=== PATIENT | female | born 1970 | race Caucasian/White ===

== ENCOUNTER 2020-05-29 23:44 | Emergency (ER) | payer BC ==
--- NOTE | 2020-05-30 00:26 | ER Document Report ---
ED Medical Screen (RME) - General Chief Complaint: Abdominal Pain Stated Complaint: ABDOMINAL PAIN Mode of Arrival: Wheelchair Information source: Patient Notes: 49-year-old female presents to ED for complaint of upper abdominal pain. She does have a history of high blood pressure and is on amlodipine. She does have a blood pressure of 101/56 with a pulse of 61 respirations of 18 and a temp of 98.7. She states she has had 4 glasses of wine today. She states she does drink once or twice a week. She does not smoke or do any drugs. She has not been to this hospital before. The only medical history she gave me was the high blood pressure. She did tell the check in the front that she was having numbness down 1 of her arms and then she pushed herself up from that arm. She was laying on the floor but she is now sitting in a chair. I will order blood work and upper abdominal ultrasound. I have greeted and performed a rapid initial assessment of this patient. A comprehensive ED assessment and evaluation of the patient, analysis of test results and completion of medical decision making process will be conducted by an additional ED providers. Physical Exam - Vital signs Vitals: Pulse Resp BP Pulse Ox 61 18 101/56 L 100 05/29/20 23:51 05/29/20 23:51 05/29/20 23:51 05/29/20 23:51 Course - Vital Signs Vital signs: Temp Pulse Resp BP Pulse Ox 61 18 101/56 L 100 05/29/20 23:51 05/29/20 23:51 05/29/20 23:51 05/29/20 23:51
[2020-05-30 02:18] LABS: ABSOLUTE LYMPHOCYTES (AUTO) 1.7 10^3/uL (0.5-4.7); ABSOLUTE MONOCYTES (AUTO) 0.6 10^3/uL (0.1-1.4); ABSOLUTE NEUT (AUTO) 10.1 10^3/uL (1.7-8.2); BASOPHILS % (AUTO) 0.3 % (0-2); EOSINOPHILS % (AUTO) 0.2 % (0-6); HEMATOCRIT 37.2 % (36.0-47.0); HEMOGLOBIN 12.5 g/dL (12.0-15.5); LYMPHOCYTES % (AUTO) 13.4 % (13-45); MEAN CORPUSCULAR HEMOGLOBIN 31.6 pg (27.0-33.4); MEAN CORPUSCULAR HGB CONC 33.7 g/dL (32.0-36.0); MEAN CORPUSCULAR VOLUME 94 fl (80-97); PLATELET COUNT 199 10^3/uL (150-450); RED BLOOD COUNT 3.97 10^6/uL (3.72-5.28); RED CELL DISTRIBUTION WIDTH 13.3 % (11.5-14.0); SEGMENTED NEUTROPHILS % (AUTO) 81.1 % (42-78); TOTAL CELLS COUNTED % (AUTO) 100 %; WHITE BLOOD COUNT 12.4 10^3/uL (4.0-10.5)
--- NOTE | 2020-05-30 02:21 | RADIOLOGY REPORT (SQ) ---
EXAM DESCRIPTION: U/S ABDOMEN COMPLETE W/DOPPLER RadLex: US ABDOMEN DOPPLER CLINICAL HISTORY: 49 years Female; Upper abdominal pain TECHNIQUE: Abdominal ultrasound was performed. COMPARISON: None. FINDINGS: Liver: 15.8 cm long. Parenchyma is somewhat heterogeneous. No focal lesion. No ductal distention. Small amount of overlying free fluid. . No intrahepatic ductal distention. No focal lesions. Gallbladder: normal with no gallstones or sonographic evidence for acute cholecystitis. Common bile duct: 2 mm. Pancreas: visualized portions are unremarkable. Spleen: 8.2 cm long. Portal venous flow is hepatopedal, normal. No free fluid. Right kidney: 10.6 cm long. No hydronephrosis. Left kidney: 11.1 cm long. No hydronephrosis. Aorta:Visualized portions are within normal limits. IVC: Visualized portions are within normal limits. IMPRESSION: 1. Heterogeneous liver parenchyma, suspicious for diffuse hepatocellular disease. Small amount of perihepatic fluid, but no significant ascites. 2. Normal hepatopedal portal venous flow 3. Otherwise unremarkable exam.
[2020-05-30 02:32] LABS: ALBUMIN 4.1 g/dL (3.5-5.0); ALKALINE PHOSPHATASE 62 U/L (38-126); ANION GAP 6 (5-19); ASPARTATE AMINO TRANSFERASE 71 U/L (14-36); BILIRUBIN,TOTAL 0.3 mg/dL (0.2-1.3); BLOOD UREA NITROGEN 17 mg/dL (7-20); CARBON DIOXIDE 21 mmol/L (22-30); CHLORIDE 109 mmol/L (98-107); GLUCOSE 161 mg/dL (75-110); POTASSIUM 3.8 mmol/L (3.6-5.0)
[2020-05-30 02:49] LABS: APPEARANCE,URINE CLEAR; BILIRUBIN,URINE NEGATIVE (NEGATIVE); COLOR,URINE STRAW; GLUCOSE, URINE 150 mg/dL (NEGATIVE); KETONES,URINE 20 mg/dL (NEGATIVE); LEUKOCYTE ESTERASE,URINE NEGATIVE (NEGATIVE); NITRITE,URINE NEGATIVE (NEGATIVE); PROTEIN,URINE NEGATIVE (NEGATIVE); URINE SPECIFIC GRAVITY 1.019; UROBILINOGEN,URINE NEGATIVE mg/dL (<2.0)
[2020-05-30] MEDS ORDERED: PANTOPRAZOLE SODIUM 40 MG VIAL IV ONE (04:54)
[2020-05-30] MEDS ORDERED: MORPHINE SULFATE 10 MG/ML INJ IV ONE (04:54)
[2020-05-30] MEDS ORDERED: ONDANSETRON HCL INJ/PF 4 MG/2 ML SDV IV ONE ×2 (04:54→12:07)
[2020-05-30] MEDS ORDERED: FAMOTIDINE INJ/PF 20 MG/2 ML SDV IV ONE (04:54)
[2020-05-30] MEDS ORDERED: HYDROMORPHONE HCL INJ/PF 2 MG/ML AMPULE IV ONE ×4 (05:17→16:49)
--- NOTE | 2020-05-30 07:21 | ER Document Report ---
ED General - General Chief Complaint: Abdominal Pain Stated Complaint: ABDOMINAL PAIN Time Seen by Provider: 05/30/20 00:27 Primary Care Provider: [facility] [Provider Group] - Follow up as needed CORTEZ HUBBARD MD [Primary Care Provider] - Follow up as needed RASHAUN NUNO MD [ACTIVE STAFF] - Follow up as needed Mode of Arrival: Wheelchair - HPI Notes: 49-year-old female history of hypertension presents with sudden onset severe epigastric abdominal pain without radiation associated with nausea that began 10 PM prior to arrival. Patient endorses drinking 4 glasses of wine beforehand. Patient denies any trauma, chest pain, shortness of breath, dizziness, syncope, vomiting, bright red blood per rectum, melena, diarrhea, constipation, lower abdominal symptoms, urinary or vaginal symptoms, cardiac history, prior episodes - Related Data Allergies/Adverse Reactions: Sulfa (Sulfonamide Antibiotics) Allergy (Verified 05/30/20 00:35) Home Medications: Amlodipine 5mg PO Daily Past Medical History - General Information source: Patient - Social History Smoking Status: Current Every Day Smoker Chew tobacco use (# tins/day): No Frequency of alcohol use: Occasional Drug Abuse: None Family History: Reviewed & Not Pertinent Patient has homicidal ideation: Yes - Past Medical History Cardiac Medical History: Reports: Hx Hypertension Review of Systems - Review of Systems Notes: REVIEW OF SYSTEMS: CONSTITUTIONAL : Denies fever, chills, or sweats. EENT: Denies recent cold/sinus symptoms, denies throat pain CARDIOVASCULAR: Denies chest pain, MANOLO RESPIRATORY: Denies cough, denies shortness of breath. GASTROINTESTINAL: + abdominal pain, +nausea GENITOURINARY: Denies difficulty urinating, painful urination. FEMALE GENITOURINARY: Denies abnormal vaginal bleeding, vaginal discharge. MUSCULOSKELETAL: Denies neck pain, back pain. SKIN: Denies rash or skin lesions. HEMATOLOGIC : Denies easy bruising or bleeding. LYMPHATIC: Denies swollen, enlarged glands. NEUROLOGICAL: Denies headache, denies change in gait. PSYCHIATRIC: Denies anxiety or stress or depression. Physical Exam - Vital signs Vitals: Pulse Resp BP Pulse Ox 61 18 101/56 L 100 05/29/20 23:51 05/29/20 23:51 05/29/20 23:51 05/29/20 23:51 - Notes Notes: PHYSICAL EXAMINATION: GENERAL: Well-nourished, uncomfortable secondary to abdominal pain HEAD: Atraumatic, normocephalic. EYES: Pupils equal round and appropriate constriction, sclera anicteric, conjunctiva are normal. ENT: nares patent, moist mucous membranes. NECK: Normal range of motion, supple without lymphadenopathy LUNGS: Breath sounds clear to auscultation bilaterally and equal. No wheezes rales or rhonchi. HEART: Regular rate and rhythm without murmurs ABDOMEN: Soft, nontender, no guarding, no masses, no CVAT, pain is over epigastrium but nontender EXTREMITIES: Normal range of motion, no pitting or edema. No cyanosis. NEUROLOGICAL: Awake, alert, conversing appropriately, moves all extremities spontaneously. PSYCH: Normal mood, normal affect. SKIN: Warm, Dry, normal turgor, no rashes or lesions noted. Course - Re-evaluation Re-evalutation: 05/30/20 05:18 Obtain CTA of abdomen and pelvis because of pain out of proportion to examination. Presentation suspicious for possible PUD, but no signs of perforation, no spreading pain, no referred pain, normal vitals, benign abdominal exam. No signs of bleeding. Pain in distribution of pancreas but lipase normal Sufficient to rule out pancreatitis. Rule out SMA thrombus or stenosis/mesenteric ischemia, atypical ACS. Given that pain started at 10 PM, 1 troponin sufficient to rule out. 05/30/20 07:20 Patient feels significantly improved, abdominal examination remains completely nontender, patient feels relieved that symptoms have abated and is in agreement with discharge with gastroenterology follow-up. No other emergent findings on labs. Dispo pending CTA read. 05/30/20 07:30 CTA showed liver lac with subcapsular hematoma, unknown etiology as pt denies trauma not on anticoagulation and no known history of coagulopathy, h/o heavy drinking but not daily drinker and no history of withdrawal symptoms and no evidence of cirrhosis. Coags and type and screen ordered and care turned over to Dr. Bustamante pending likely transfer. - Vital Signs Vital signs: Temp Pulse Resp BP Pulse Ox 98.4 F 62 19 161/100 H 99 05/30/20 16:48 05/30/20 07:18 05/30/20 16:48 05/30/20 16:48 05/30/20 16:48 - Laboratory Result Diagrams: 05/30/20 13:50 05/30/20 01:30 Laboratory results interpreted by me: 05/30/20 05/30/20 05/30/20 01:30 01:30 01:30 WBC 12.4 H Hgb Hct Lymph % (Auto) Absolute Neuts (auto) 10.1 H Seg Neutrophils % 81.1 H APTT Sodium 135.9 L Chloride 109 H Carbon Dioxide 21 L Glucose 161 H AST 71 H ALT 56 H Ammonia Urine Glucose (UA) 150 H Urine Ketones 20 H Urine Blood SMALL H 05/30/20 05/30/20 05/30/20 08:00 13:50 13:50 WBC 11.9 H Hgb 11.9 L Hct 35.3 L Lymph % (Auto) 6.9 L Absolute Neuts (auto) 10.4 H Seg Neutrophils % 87.6 H APTT 20.9 L 21.7 L Sodium Chloride Carbon Dioxide Glucose AST ALT Ammonia Urine Glucose (UA) Urine Ketones Urine Blood 05/30/20 05/30/20 13:50 13:50 WBC Hgb Hct Lymph % (Auto) Absolute Neuts (auto) Seg Neutrophils % APTT Sodium Chloride Carbon Dioxide Glucose AST 261 H ALT 275 H Ammonia < 8.7 L Urine Glucose (UA) Urine Ketones Urine Blood - EKG Interpretation by Me Additional EKG results interpreted by me: 05/30/20 06:00 Heart rate 65, normal sinus rhythm, no significant ST elevations or depressions, T wave inversion in 3 and aVF, QTC 441 Discharge - Discharge Clinical Impression: Subcapsular hematoma of liver, Alcohol use Abdominal pain Qualifiers: Abdominal location: right upper quadrant Qualified Code(s): R10.11 - Right upper quadrant pain Condition: Stable Disposition: [facility] Additional Instructions: Abdominal Pain There are many causes of abdominal pain. Pain can mean a serious problem requiring surgery (such as appendicitis). It can also be an innocent problem that goes away on its own (such as a viral infection). Often, time must pass to determine the cause of pain. The physician does not feel that hospitalization is necessary, at present. Things may change within the next 24 hours. Call the doctor or come back for re- examination if any problems occur, such as: (1) Pain that becomes more severe, steady, or becomes concentrated in one specific area. Also, pain that is more severe with movement or coughing. (2) Vomiting that persists or becomes more frequent. (3) Blood in the vomitus, urine, or bowel movements. Blood in the stool may have a tarry or black appearance. (4) Shaking chills or fever greater than 100 degrees F. (5) The abdomen becomes more distended or swollen. (6) Bowel movements cease. (7) Failure to improve as expected. 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 Inform them that you were evaluated in the ED. Return to ED immediately if pain should worsen, black or bloody stool, vomiting and unable to keep down liquids by mouth, bloody vomit, dizziness, fainting, chest pain, trouble breathing, fever, or any other worsening or alarming symptoms. Your evaluation in the ED showed abnormal liver texture possibly suggesting liver disease and several mildly abnormal labs including AST, ALT, glucose, which should be reevaluated by [facility] and your primary doctor within 1 week. Prescriptions: Omeprazole 40 mg PO DAILY #7 capsule. Famotidine [Pepcid 20 mg Tablet] 20 mg PO BID #14 tablet Referrals: CORTEZ HUBBARD MD [Primary Care Provider] - Follow up as needed RASHAUN NUNO MD [ACTIVE STAFF] - Follow up as needed [facility] [Provider Group] - Follow up as needed
--- NOTE | 2020-05-30 07:43 | RADIOLOGY REPORT (SQ) ---
EXAM: CT Angiography Abdomen and Pelvis Without and With Intravenous Contrast EXAM DATE/TIME: 05/30/2020 6:06 AM CLINICAL HISTORY: The patient is 49 years old and is Female; mid upper abd pain out of proportion. HCG NEG CREAT 0.88 TECHNIQUE: Axial computed tomographic angiography images of the abdomen and pelvis without and with intravenous contrast. Sagittal and coronal reformatted images were created and reviewed. This CT exam was performed using one or more of the following dose reduction techniques: automated exposure control, adjustment of the mA and/or kV according to patient size, and/or use of iterative reconstruction technique. MIP reconstructed images were created and reviewed. COMPARISON: Abdominal ultrasound from 05/30/2020 FINDINGS: VASCULATURE: AORTA: No acute findings. No abdominal aortic aneurysm. No dissection. CELIAC TRUNK AND MESENTERIC ARTERIES: No acute findings. No occlusion or significant stenosis. RENAL ARTERIES: No acute findings. No occlusion or significant stenosis. ILIAC ARTERIES: No acute findings. No occlusion or significant stenosis. LUNG BASES: Unremarkable. No mass. No consolidation. ABDOMEN: LIVER: There is a large heterogeneous collection extending along the lateral right lobe of the liver. This has the appearance of a large subcapsular fluid collection and is favored to represent subacute acute hematoma. This measures approximately 13.5 x 6.0 cm. There is also a small, somewhat irregular area of decreased density visualized in the lateral segment of the left lobe of the liver (series 3, image 31). This measures approximately 2.2 cm. GALLBLADDER AND BILE DUCTS: Unremarkable. No calcified stones. No significant biliary ductal dilation. PANCREAS: Unremarkable. No ductal dilation. No mass. SPLEEN: Unremarkable. No splenomegaly. ADRENALS: Unremarkable. No obvious adrenal mass or nodule. KIDNEYS AND URETERS: Unremarkable. No obstructing stones. No hydronephrosis. No obvious solid mass. STOMACH AND BOWEL: No evidence of bowel obstruction. No significant bowel wall thickening. PELVIS: APPENDIX: The appendix is unremarkable. BLADDER: Unremarkable. No stones. No mass. REPRODUCTIVE: Unremarkable as visualized. ABDOMEN and PELVIS: INTRAPERITONEAL SPACE: Trace perihepatic free fluid. No free air. BONES/JOINTS: No acute fracture. No dislocation. SOFT TISSUES: Small fat-containing umbilical hernia. LYMPH NODES: No significant lymph node enlargement. IMPRESSION: 1. Large heterogeneous collection along the right lobe of the liver. This has the appearance of a large subcapsular fluid collection and is favored to represent subacute acute hematoma. There is also a small, somewhat irregular area of decreased density visualized in the left lobe of the liver, which could represent a small liver lesion or small liver laceration. There is no contrast extravasation visualized to suggest active hemorrhage. Recommend correlation with clinical history. 2. Trace perihepatic free fluid.
--- NOTE | 2020-05-30 08:14 | ER Document Report ---
ED General - General Chief Complaint: Abdominal Pain Stated Complaint: ABDOMINAL PAIN Time Seen by Provider: 05/30/20 00:27 Primary Care Provider: [facility] [Provider Group] - Follow up as needed CORTEZ HUBBARD MD [Primary Care Provider] - Follow up as needed RASHAUN NUNO MD [ACTIVE STAFF] - Follow up as needed Mode of Arrival: Wheelchair - HPI Notes: Patient is a 49-year-old female who presents to the emergency department for evaluation. She states that she had fallen asleep on her couch at about 8 PM. She states she woke up at 10 PM with sudden onset epigastric pain. She described as a pressure and a tightness. It progressed over the next several hours. She states her pain was worsened by lying in a supine position. It was improved when she was sitting on all fours and what she called a "turtle position." She has had no fevers or chills. She had nausea with one episode of emesis here, reports that was likely secondary to IV placement. Normal bowel movements. No fevers or chills. She had been eating and drinking normally. She denies any recent trauma to the area. 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 She denies any falls. - Related Data Allergies/Adverse Reactions: Sulfa (Sulfonamide Antibiotics) Allergy (Verified 05/30/20 00:35) Home Medications: Amlodipine 5mg PO Daily Past Medical History - General Information source: Patient - Social History Smoking Status: Current Every Day Smoker Chew tobacco use (# tins/day): No Frequency of alcohol use: Heavy - Drinks 4 to 6 glasses of wine, 4 times a week Drug Abuse: None Family History: Other - Cirrhosis Patient has homicidal ideation: Yes - Past Medical History Cardiac Medical History: Reports: Hx Hypertension Review of Systems - Review of Systems Gastrointestinal: See HPI -: Yes All other systems reviewed and negative Physical Exam - Vital signs Vitals: Pulse Resp BP Pulse Ox 61 18 101/56 L 100 05/29/20 23:51 05/29/20 23:51 05/29/20 23:51 05/29/20 23:51 - Notes Notes: Vital signs reviewed, please refer to chart. Head is normocephalic, atraumatic. Pupils equal round, reactive to light. Neck is supple without meningismus. Heart is regular rate and rhythm. Lungs are clear to auscultation bilaterally. Abdomen is soft, mild epigastric pain without rebound or guarding, normoactive bowel sounds throughout. She has a 2 x 4 cm area of ecchymosis inferior to the liver margin on the right, with no significant tenderness noted there. Extremities without cyanosis, clubbing. Posterior calves are nontender. Peripheral pulses are equal. Skin is warm and dry. Patient is awake, alert, neurological exam is nonfocal. Course - Re-evaluation Re-evalutation: 05/30/20 08:13 Patient presents to the emergency department for evaluation. She was initially seen by Dr. Tracey. She had laboratory investigations and work-up as ordered. Her pain was improved by the medication, but began to return at the time of my evaluation. Care of this patient was turned over to me when the CT scan report came back. Patient denies any trauma, but I do not believe her to be a reliable historian. She admits to heavy drinking, I am concerned she drinks even more heavily than she reports. She certainly could have had a trauma that she does not recall. It is rare, but can also possibly be a spontaneous subcapsular hematoma. I discussed this patient with Dr. Richards. He is concerned about the possibility of rupture, concerned that this should be taken care of in a tertiary care center. I discussed this with the patient. She is kept n.p.o. Type and screen, coags are pending at this time. Patient is currently stable, we will continue to monitor. 05/30/20 08:27 I spoke to the trauma service, Dr. Cedeno, at [facility]. He agrees that transfer is appropriate, but asks that the images be pushed to his facility, so he can review them to determine the most appropriate service, given specifically that this patient is denying any known trauma. Images pushed, awaiting callback. 05/30/20 08:57 Dr. Cedeno called me back. He reports that there is some findings of old blood, and believes this may be best handled by the emergency general surgery service. Transfer gunnison has a page out to [facility]. 05/30/20 10:03 I was updated by the transfer center at [facility]. The general surgeon has been in surgery, will call when she is free. The patient remained stable. I went back in and examined her again. She states her pain was helped by the fentanyl. 05/30/20 11:[address] Rolle, on-call surgeon, when she called me back approximately 20 minutes ago. She states she reviewed the films. She states the only reason for transfer at this time would be active bleeding, and there is no evidence of that. She states that she believed an observation will be reasonable, but she believed it could be done at my facility. She states of course if she were to bleed the patient would be accepted. I spoke to Dr. Richards, our on-call surgeon. He states he believes that if the patient were to rebleed here she would definitely succumb to this bleeding, and has grave concerns about her staying in our facility. I then called [facility] back, spoke to GIORGIO Venegas on the medicine service. He reports that he now has a surgeon who states this patient does not require transfer, and it would have a difficult time accepting this patient in transfer based on this information. I then spoke with Dr. Marilyn lozano regarding this patient. He is still concerned that the patient will potentially need emergent IR, which is not available here, and again agrees that this patient's most appropriate disposition is to a tertiary care center. He will attempted to speak to the physicians at [facility] regarding this patient's disposition. Patient's pain has returned, I did order a small dose of Dilaudid. She remains n.p.o. 05/30/20 14:46 We did have significant difficulty transferring this patient. I did get help from Dr. Buckley who made multiple attempts. Upon further questioning with the patient, she does state that she was wrestling with an animal of several days ago, believes this may have been the etiology of a traumatic blow to her abdomen. I truly believe this to be atraumatic subcapsular hematoma. Eventually, I was able to make this a trauma transfer to [facility]. Dr. Cintron in the emergency department accepted the patient. 05/30/20 16:50 Patient remained stable. She states her pain was starting to worsen slightly, but her heart rate remained 70, she is actually mildly hypertensive. 0.5 mg of Dilaudid ordered, as that it helped her pain significantly. Helicopter transport is arriving now for transfer to [facility]. - Vital Signs Vital signs: Temp Pulse Resp BP Pulse Ox 98.0 F 62 16 166/100 H 99 05/30/20 07:18 05/30/20 07:18 05/30/20 15:01 05/30/20 15:01 05/30/20 15:01 - Laboratory Result Diagrams: 05/30/20 13:50 05/30/20 01:30 Laboratory results interpreted by me: 05/30/20 05/30/20 05/30/20 01:30 01:30 01:30 WBC 12.4 H Hgb Hct Lymph % (Auto) Absolute Neuts (auto) 10.1 H Seg Neutrophils % 81.1 H APTT Sodium 135.9 L Chloride 109 H Carbon Dioxide 21 L Glucose 161 H AST 71 H ALT 56 H Ammonia Urine Glucose (UA) 150 H Urine Ketones 20 H Urine Blood SMALL H 05/30/20 05/30/20 05/30/20 08:00 13:50 13:50 WBC 11.9 H Hgb 11.9 L Hct 35.3 L Lymph % (Auto) 6.9 L Absolute Neuts (auto) 10.4 H Seg Neutrophils % 87.6 H APTT 20.9 L 21.7 L Sodium Chloride Carbon Dioxide Glucose AST ALT Ammonia Urine Glucose (UA) Urine Ketones Urine Blood 05/30/20 05/30/20 13:50 13:50 WBC Hgb Hct Lymph % (Auto) Absolute Neuts (auto) Seg Neutrophils % APTT Sodium Chloride Carbon Dioxide Glucose AST 261 H ALT 275 H Ammonia < 8.7 L Urine Glucose (UA) Urine Ketones Urine Blood - Diagnostic Test Radiology reviewed: Reports reviewed Radiology results interpreted by me: 05/30/20 08:22 Abdomen Ultrasound 05/30/20 00:26 IMPRESSION: 1. Heterogeneous liver parenchyma, suspicious for diffuse hepatocellular disease. Small amount of perihepatic fluid, but no significant ascites. 2. Normal hepatopedal portal venous flow 3. Otherwise unremarkable exam. Abdomen/Pelvis CTA 05/30/20 04:55 IMPRESSION: 1. Large heterogeneous collection along the right lobe of the liver. This has the appearance of a large subcapsular fluid collection and is favored to represent subacute acute hematoma. There is also a small, somewhat irregular area of decreased density visualized in the left lobe of the liver, which could represent a small liver lesion or small liver laceration. There is no contrast extravasation visualized to suggest active hemorrhage. Recommend correlation with clinical history. 2. Trace perihepatic free fluid. Critical Care Note - Critical Care Note Total time excluding time spent on procedures (mins): 80 Discharge - Discharge Clinical Impression: Subcapsular hematoma of liver, Alcohol use Abdominal pain Qualifiers: Abdominal location: right upper quadrant Qualified Code(s): R10.11 - Right upper quadrant pain Condition: Stable Disposition: [facility] Admitting Provider: Abdulaziz accepting to ED Additional Instructions: Abdominal Pain There are many causes of abdominal pain. Pain can mean a serious problem requiring surgery (such as appendicitis). It can also be an innocent problem that goes away on its own (such as a viral infection). Often, time must pass to determine the cause of pain. The physician does not feel that hospitalization is necessary, at present. Things may change within the next 24 hours. Call the doctor or come back for re- examination if any problems occur, such as: (1) Pain that becomes more severe, steady, or becomes concentrated in one specific area. Also, pain that is more severe with movement or coughing. (2) Vomiting that persists or becomes more frequent. (3) Blood in the vomitus, urine, or bowel movements. Blood in the stool may have a tarry or black appearance. (4) Shaking chills or fever greater than 100 degrees F. (5) The abdomen becomes more distended or swollen. (6) Bowel movements cease. (7) Failure to improve as expected. Follow-up with the scowman within 1 week. Inform them that you were evaluated in the ED. Return to ED immediately if pain should worsen, black or bloody stool, vomiting and unable to keep down liquids by mouth, bloody vomit, dizziness, fainting, chest pain, trouble breathing, fever, or any other worsening or alarming symptoms. Your evaluation in the ED showed abnormal liver texture possibly suggesting liver disease and several mildly abnormal labs including AST, ALT, glucose, which should be reevaluated by scowman and your primary doctor within 1 week. Prescriptions: Omeprazole 40 mg PO DAILY #7 capsule. Famotidine [Pepcid 20 mg Tablet] 20 mg PO BID #14 tablet Referrals: [facility] [Provider Group] - Follow up as needed CORTEZ HUBBARD MD [Primary Care Provider] - Follow up as needed RASHAUN NUNO MD [ACTIVE STAFF] - Follow up as needed
[2020-05-30 08:27] LABS: INTERNATIONAL RATION (INR) 1.01; PARTIAL THROMBOPLASTIN TIME 20.9 SEC (23.5-35.8); PROTHROMBIN TIME 13.5 SEC (11.4-15.4)
[2020-05-30] MEDS ORDERED: FENTANYL CITRATE INJ/PF 100 MCG/2 ML AMPUL IV ONE (09:02)
[2020-05-30] MEDS ORDERED: THIAMINE HCL INJ 200 MG/2 ML VIAL IV ONE (14:00)
[2020-05-30 14:07] LABS: ABSOLUTE LYMPHOCYTES (AUTO) 0.8 10^3/uL (0.5-4.7); ABSOLUTE MONOCYTES (AUTO) 0.6 10^3/uL (0.1-1.4); ABSOLUTE NEUT (AUTO) 10.4 10^3/uL (1.7-8.2); BASOPHILS % (AUTO) 0.1 % (0-2); HEMATOCRIT 35.3 % (36.0-47.0); HEMOGLOBIN 11.9 g/dL (12.0-15.5); LYMPHOCYTES % (AUTO) 6.9 % (13-45); MEAN CORPUSCULAR HEMOGLOBIN 31.6 pg (27.0-33.4); MEAN CORPUSCULAR HGB CONC 33.8 g/dL (32.0-36.0); MEAN CORPUSCULAR VOLUME 93 fl (80-97); MONOCYTES % (AUTO) 5.4 % (3-13); PLATELET COUNT 180 10^3/uL (150-450); RED BLOOD COUNT 3.78 10^6/uL (3.72-5.28); RED CELL DISTRIBUTION WIDTH 13.3 % (11.5-14.0); SEGMENTED NEUTROPHILS % (AUTO) 87.6 % (42-78); TOTAL CELLS COUNTED % (AUTO) 100 %; WHITE BLOOD COUNT 11.9 10^3/uL (4.0-10.5)
[2020-05-30 14:20] LABS: FIBRINOGEN 253 mg/dL (209-497); INTERNATIONAL RATION (INR) 1.01; PARTIAL THROMBOPLASTIN TIME 21.7 SEC (23.5-35.8); PROTHROMBIN TIME 13.5 SEC (11.4-15.4)
[2020-05-30 14:28] LABS: ALBUMIN 4.3 g/dL (3.5-5.0); ALKALINE PHOSPHATASE 51 U/L (38-126); ASPARTATE AMINO TRANSFERASE 261 U/L (14-36); BILIRUBIN,TOTAL 0.6 mg/dL (0.2-1.3)
--- NOTE | 2020-05-30 14:45 | PDOC CONSULTATION ---
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 She was hemodynamically stable and in the ensuing work-up received a CT scan and ultrasound which showed a subcapsular hematoma of the l iver which was quite large (13.5 X 6). The pain has been quite strong and she has required fentanyl and Dilaudid. The emergency room consulted intensive care because there was an inability for the patient to be accepted at [facility] and [facility]. The ED was concerned about this patient's welfare and asked if we could intervene and assist in her care. The patient states that she does not work with large animals and denies being kicked or injured. She does state that she often has to wrestle and control animals but does not recall any blunt abdominal trauma. She has not had any weight loss fevers or chills. There is no history of liver cancer and there is only a family history of cirrhosis. Her mother from complications of cirrhosis related to alcohol use. She does disclose that she occasionally sleep walks while under stress and she has felt significant stress at work. She also discloses that she drinks a significant amount of alcohol and did so last night. She denies any falls or traumas. Currently patient has a 20 guage IV catheter in left arm. She does have pain but is controlled with Dilaudid that she received. Past Medical History Cardiac Medical History: Reports: Hypertension Pulmonary Medical History: Reports: None EENT Medical History: Reports: None Neurological Medical History: Reports: None Endocrine Medical History: Reports: Other - Patient has a benign thyroid nodule that is been biopsied X 2 Renal/ Medical History: Reports: None Malignancy Medical History: Reports: None GI Medical History: Reports: None Denies: Cirrhosis Musculoskeltal Medical History: Reports: None Skin Medical History: Reports: None Psychiatric Medical History: Reports: Alcohol Dependency Traumatic Medical History: Reports: None Hematology: Reports: None Infectious Medical History: Reports: None Social History Information Source: Patient Lives with: Spouse/Significant other Smoking Status: Current Every Day Smoker Electronic Cigarette use?: No Frequency of Alcohol Use: Heavy Amount of Alcoholic Beverages Per Day: 4-5 Last Alcohol Use: 05/29/20 Hx Recreational Drug Use: No Hx Prescription Drug Abuse: No Family History Family History: Other - Cirrhosis-mother, Parental Family History Reviewed: Yes Children Family History Reviewed: NA Sibling(s) Family History Reviewed.: Yes Medication/Allergy Home Medications: Famotidine [Pepcid 20 mg Tablet] 20 mg PO BID #14 tablet 05/30/20 Omeprazole 40 mg PO DAILY #7 capsule. 05/30/20 Allergies/Adverse Reactions: Sulfa (Sulfonamide Antibiotics) Allergy (Verified 05/30/20 00:35) Review of Systems Constitutional: ABSENT: chills, fever(s), headache(s), weight gain, weight loss Cardiovascular: ABSENT: chest pain, dyspnea on exertion, edema, orthropnea, palpitations Respiratory: ABSENT: cough, hemoptysis Gastrointestinal: PRESENT: as per HPI, abdominal pain. ABSENT: coffee ground emesis, hematemesis, hematochezia, nausea, vomiting Genitourinary: ABSENT: dysuria, hematuria Musculoskeletal: PRESENT: joint swelling Integumentary: PRESENT: as per HPI Neurological: PRESENT: weakness - when given Dilaudid otherwise no week Psychiatric: PRESENT: anxiety, other - Has significant stress because of busy work environment Endocrine: ABSENT: heat intolerance, menstrual abnormalities Hematologic/Lymphatic: ABSENT: easy bleeding, easy bruising, lymphadenopathy Physical Exam Vital Signs: Temp Pulse Resp BP Pulse Ox 98.0 F 62 17 168/98 H 99 05/30/20 07:18 05/30/20 07:18 05/30/20 10:01 05/30/20 10:01 05/30/20 10:01 Intake & Output 05/29/20 05/30/20 05/31/20 06:59 06:59 06:59 Weight 68.039 kg Physical Exam: Nontoxic somewhat disheveled 49-year-old female who is in mild, she is awake, General appearance: PRESENT: no acute distress, cooperative, disheveled, well- developed, well-nourished Head exam: PRESENT: atraumatic, normocephalic Eye exam: PRESENT: conjunctiva pink, EOMI, PERRLA. ABSENT: conjunctival injection, nystagmus, scleral icterus Ear exam: PRESENT: normal external ear exam. ABSENT: bleeding Mouth exam: PRESENT: dry mucosa, neck supple Teeth exam: ABSENT: edentulous, poor dentation Neck exam: ABSENT: carotid bruit, JVD, lymphadenopathy, tenderness, thyromegaly, tracheal deviation Respiratory exam: PRESENT: clear to auscultation rolando, unlabored. ABSENT: a ccessory muscle use, tachypnea, wheezes Cardiovascular exam: PRESENT: RRR, +S1, +S2. ABSENT: tachycardia Pulses: PRESENT: +2 pedal pulses bilateral Vascular exam: PRESENT: normal capillary refill. ABSENT: pallor GI/Abdominal exam: PRESENT: distended, firm, guarding, tenderness, other - Minimal physical contact with abdomen done due to the sub-capsular hematoma. There is a small area of ecchymosis in the right upper quadrant.. ABSENT: ascites Rectal exam: PRESENT: deferred Extremities exam: ABSENT: joint swelling, pedal edema Musculoskeletal exam: PRESENT: ambulatory. ABSENT: deformity, dislocation Neurological exam: PRESENT: awake, oriented to person, oriented to place, oriented to time, oriented to situation, CN II-XII grossly intact. ABSENT: motor sensory deficit Psychiatric exam: PRESENT: flat affect Focused psych exam: ABSENT: pressured speech, psychomotor agitation, restlessness Skin exam: PRESENT: dry, intact, normal color, warm. ABSENT: cyanosis, erythema, jaundice, pallor, petechiae, rash Results Laboratory Results: 05/30/20 01:30 05/30/20 01:30 05/30/20 05/30/20 05/30/20 01:30 01:30 01:30 WBC 12.4 H RBC 3.97 Hgb 12.5 Hct 37.2 MCV 94 MCH 31.6 MCHC 33.7 RDW 13.3 Plt Count 199 Seg Neutrophils % 81.1 H Sodium 135.9 L Potassium 3.8 Chloride 109 H Carbon Dioxide 21 L Anion Gap 6 BUN 17 Creatinine 0.88 Est GFR ( Amer) > 60 Glucose 161 H Calcium 9.0 Magnesium Total Bilirubin 0.3 AST 71 H Alkaline Phosphatase 62 Total Protein 7.0 Albumin 4.1 Lipase 189.3 Serum HCG, Qual Urine Color STRAW Urine Appearance CLEAR Urine pH 6.0 Ur Specific [place] 1.019 Urine Protein NEGATIVE Urine Glucose (UA) 150 H Urine Ketones 20 H Urine Blood SMALL H Urine Nitrite NEGATIVE Ur Leukocyte Esterase NEGATIVE Urine WBC (Auto) 1 Urine RBC (Auto) 3 Blood Type Antibody Screen 05/30/20 05/30/20 05/30/20 01:30 01:30 08:00 WBC RBC Hgb Hct MCV MCH MCHC RDW Plt Count Seg Neutrophils % Sodium Potassium Chloride Carbon Dioxide Anion Gap BUN Creatinine Est GFR ( Amer) Glucose Calcium Magnesium 2.0 Total Bilirubin AST Alkaline Phosphatase Total Protein Albumin Lipase Serum HCG, Qual NEGATIVE Urine Color Urine Appearance Urine pH Ur Specific [place] Urine Protein Urine Glucose (UA) Urine Ketones Urine Blood Urine Nitrite Ur Leukocyte Esterase Urine WBC (Auto) Urine RBC (Auto) Blood Type B POSITIVE Antibody Screen NEGATIVE 05/30/20 01:30 Troponin I < 0.012 Impressions: Abdomen Ultrasound 05/30/20 00:26 IMPRESSION: 1. Heterogeneous liver parenchyma, suspicious for diffuse hepatocellular disease. Small amount of perihepatic fluid, but no significant ascites. 2. Normal hepatopedal portal venous flow 3. Otherwise unremarkable exam. Abdomen/Pelvis CTA 05/30/20 04:55 IMPRESSION: 1. Large heterogeneous collection along the right lobe of the liver. This has the appearance of a large subcapsular fluid collection and is favored to represent subacute acute hematoma. There is also a small, somewhat irregular area of decreased density visualized in the left lobe of the liver, which could represent a small liver lesion or small liver laceration. There is no contrast extravasation visualized to suggest active hemorrhage. Recommend correlation with clinical history. 2. Trace perihepatic free fluid. Assessment & Plan - Diagnosis (1) Subcapsular hematoma of liver Is this a current diagnosis for this admission?: Yes (2) Abdominal pain Qualifiers: Abdominal location: right upper quadrant Qualified Code(s): R10.11 - Right upper quadrant pain Is this a current diagnosis for this admission?: Yes (3) Alcohol use Is this a current diagnosis for this admission?: Yes (4) Hypertension Qualifiers: Hypertension type: other secondary hypertension Qualified Code(s): I15.8 - Other secondary hypertension Is this a current diagnosis for this admission?: Yes Plan: Most likely related to pain - Time Time Spent: Greater than 70 Minutes Total Critical Time (Minutes): 90 Medications reviewed and adjusted accordingly: Yes Anticipated discharge: [facility] Anticipated DC Timeframe: when bed available - Inpatient Certification Based on my medical assessment, after consideration of the patient's comorbidities, presenting symptoms, or acuity I expect that the services needed warrant INPATIENT care.: Yes I certify that my determination is in accordance with my understanding of Medicare's requirements for reasonable and necessary INPATIENT services [42 CFR 412.3e].: Yes Medical Necessity: Failure to Improve With Outpatient Therapy, Need Close Monitoring Due to Risk of Patient Decompensation, Need For IV Fluids, Need For Continuous Telemetry Monitoring, Need for Pain Control, Need for Surgery, Risk of Complication if Not Cared For in Hospital, Risk of Diagnosis Which Will Require Inpatient Eval/Care/Monitoring Post Hospital Care: D/C or Transfer Summary - Plan Summary Plan Summary: Patient has what appears to be a spontaneous subcapsular hematoma of the liver. This may in fact be trauma related however the fact that it is large requires close observation. 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 Her blood pressure is elevated most likely related to the pain but places her at risk of spontaneous bleed. She has a history of alcohol use and I am suspicious it is more extensive than she endorses Isolated spontaneous subcapsular hematomas are rare but can be as a result of malignancy, or coagulopathy. Her screen is negative and there is no history of malignancy although this cannot be ruled out in this sett ing. I am suspicious, given the small area of eccymosis in mid-right skin of abdomen, and her alcohol use, that this may be related to trauma. That being said, I would suspect there would be evidence of trauma. [facility] has the ability to admit the patient for observation and stabilization however we do not have the ability to manage her care if the hematoma spontaneously bleeds or ruptures. She requires the expertise of interventional radiology and/or surgery specializing in this type of austere condition. I have placed phone calls to [facility] as well as [facility], [facility] and [facility]. [facility] has not responded and [place], [facility] have full-capacity and cannot accept patient. [facility] was able to accept the patient through the trauma service Have assured two large IV's. Will continue to monitor. Repeat CBC unchanged. Alcohol level 44 on admission
[2020-05-30 17:01] VITALS: BP 161/100
--- NOTE | 2020-05-30 23:06 | EKG REPORT ---
SEVERITY:- ABNORMAL ECG - SINUS RHYTHM LEFT VENTRICULAR HYPERTROPHY NONSPECIFIC T ABNORMALITIES, INFERIOR LEADS : Confirmed by: Slime Yanes MD 30-May-2020 23:05:55
== END 2020-05-30 17:00 | disposition short-term general hospital (02) ==
LOC: ER 23:44
DX: K76.89 Other specified diseases of liver (principal); R10.11 Right upper quadrant pain; R10.13 Epigastric pain; R11.10 Vomiting, unspecified; M25.40 Effusion, unspecified joint; I10 Essential (primary) hypertension; F17.200 Nicotine dependence, unspecified, uncomplicated; F41.9 Anxiety disorder, unspecified; Z56.3 Stressful work schedule; Z79.899 Other long term (current) drug therapy; Z83.79 Family history of other diseases of the digestive system; Z88.8 Allergy status to other drugs, medicaments and biological substances; Z88.2 Allergy status to sulfonamides
CPT/HCPCS: 93005; 96376; 99285; 96374; 96375; 86900; 86901; 36415; 86850; 80307; 82140; 83690; 83735; 84703; 85025; 85384; 85610; 85730; 81025; 87070; 80053; 81001; 84484; 82105; 76700; 93976; 74174; 93010; J3010; J1170; C9113; J3411; J2405; S0028

== ENCOUNTER 2020-06-01 17:54 | Emergency (ER) | payer BC ==
[2020-06-01 18:43] LABS: ABSOLUTE EOSINOPHILS # (AUTO) 0.1 10^3/uL (0.0-0.6); ABSOLUTE LYMPHOCYTES (AUTO) 1.6 10^3/uL (0.5-4.7); ABSOLUTE MONOCYTES (AUTO) 1.3 10^3/uL (0.1-1.4); ABSOLUTE NEUT (AUTO) 11.9 10^3/uL (1.7-8.2); BASOPHILS % (AUTO) 0.3 % (0-2); EOSINOPHILS % (AUTO) 0.5 % (0-6); HEMATOCRIT 24.1 % (36.0-47.0); LYMPHOCYTES % (AUTO) 10.8 % (13-45); MEAN CORPUSCULAR HEMOGLOBIN 31.7 pg (27.0-33.4); MEAN CORPUSCULAR HGB CONC 33.7 g/dL (32.0-36.0); MEAN CORPUSCULAR VOLUME 94 fl (80-97); MONOCYTES % (AUTO) 8.6 % (3-13); PLATELET COUNT 135 10^3/uL (150-450); RED BLOOD COUNT 2.56 10^6/uL (3.72-5.28); RED CELL DISTRIBUTION WIDTH 13.2 % (11.5-14.0); SEGMENTED NEUTROPHILS % (AUTO) 79.8 % (42-78); TOTAL CELLS COUNTED % (AUTO) 100 %; WHITE BLOOD COUNT 14.9 10^3/uL (4.0-10.5)
[2020-06-01 18:45] LABS: HEMOGLOBIN 8.1 g/dL (12.0-15.5)
[2020-06-01 18:46] LABS: ALBUMIN 2.9 g/dL (3.5-5.0); ALKALINE PHOSPHATASE 82 U/L (38-126); ASPARTATE AMINO TRANSFERASE 166 U/L (14-36); BILIRUBIN,DIRECT 0.1 mg/dL (0.0-0.4); BILIRUBIN,TOTAL 0.6 mg/dL (0.2-1.3); BLOOD UREA NITROGEN 22 mg/dL (7-20); CALCIUM 8.2 mg/dL (8.4-10.2); CARBON DIOXIDE 25 mmol/L (22-30); CHLORIDE 102 mmol/L (98-107); GLUCOSE 164 mg/dL (75-110); POTASSIUM 3.5 mmol/L (3.6-5.0); TOTAL PROTEIN 5.4 g/dL (6.3-8.2)
[2020-06-01 18:54] LABS: ANION GAP 4 (5-19)
[2020-06-01] MEDS ORDERED: ONDANSETRON HCL INJ/PF 4 MG/2 ML SDV IV ONE (19:17)
[2020-06-01] MEDS ORDERED: NORMAL SALINE 1000 ML 1,000 ML IV ONE (19:18)
--- NOTE | 2020-06-01 20:06 | RADIOLOGY REPORT (SQ) ---
EXAM DESCRIPTION: [facility]: CT ABDOMEN PELVIS WITH IV CONTRAST CLINICAL HISTORY: 49 years Female; ruq pain; TECHNIQUE: CT of the abdomen and pelvis using intravenous contrast. All CT scans at this facility use dose modulation, iterative reconstruction, and/or weight based dosing when appropriate to reduce radiation dose to as low as reasonably achievable. COMPARISON: CT 05/30/2020 FINDINGS: New low-density right pleural effusion is 2.6 cm AP thickness. There is associated subsegmental posterior atelectasis in the right lower lobe. Abdomen: Stomach: No significant distention or surrounding edema. Liver: The large subcapsular collection along the right lateral edge of the liver is larger, 8 cm LR where it was previously 5.3 cm LR. AP and SI dimensions are similar. There is increased mass effect on the liver. New perihepatic hemorrhage now extends into Morison's pouch and along the inferior aspect of the right lobe. No evidence for active extravasation. The exophytic mass projecting posteriorly from segment 2 is 4.7 x 3.4 x 3.4 cm, unchanged. Gallbladder: Nondistended. Pancreas:Within normal limits Spleen: No focal lesion. Perisplenic and subdiaphragmatic hemorrhage is new since prior exam, average 2 cm LR by 10 cm AP by 9 cm craniocaudal. Right kidney:No hydronephrosis. No focal lesion. There is some mass effect on the upper pole by the liver. Left kidney:No hydronephrosis. No focal lesion. Adrenal glands:Within normal limits Vascular structures:Within normal limits Pelvis: Small bowel:No significant distention. Appendix:Within normal limits Colon: Nondistended. There is new intermediate density fluid/hemorrhage in the pelvis, extending along paracolic gutters bilaterally. Bones: No acute bone findings. Bladder: Unremarkable. Uterus is unremarkable. No pelvic adenopathy. IMPRESSION: 1. Right lateral hepatic subcapsular hematoma is larger since 05/30/2020 2. Moderate hemoperitoneum, with hemorrhage throughout the peritoneal cavity 3. No CT evidence for active extravasation at this time. 4. Exophytic lesion in the left hepatic lobe has not changed.
--- NOTE | 2020-06-01 20:09 | ER Document Report ---
ED GI/ - General Chief Complaint: Abdominal Pain Stated Complaint: ABDOMINAL PAIN Time Seen by Provider: 06/01/20 19:03 Primary Care Provider: CORTEZ HUBBARD MD [Primary Care Provider] - Follow up as needed Notes: This 49-year-old woman presents to the emergency department with a history of seen in the ER on 05/30/2020 with a subcapsular hepatic hematoma and possible intra-normal hemorrhage she was transferred to [facility]. States that she was observed overnight and discharged yesterday. Today she was at home when she noted a sudden increase in her right upper quadrant abdominal pain, felt a pop and became nauseated. EMS was called and she was transported to the emergency department, she was given fentanyl and Zofran in route. In the emergency department, she continues to have some mild pain and nausea. - Related Data Allergies/Adverse Reactions: Sulfa (Sulfonamide Antibiotics) Allergy (Verified 05/30/20 00:35) Past Medical History - Social History Smoking Status: Never Smoker Chew tobacco use (# tins/day): Yes Frequency of alcohol use: Heavy Family History: Reviewed & Not Pertinent Patient has homicidal ideation: No - Past Medical History Cardiac Medical History: Reports: Hx Hypertension GI Medical History: Denies: Hx Cirrhosis Review of Systems - Review of Systems Notes: Constitutional: Negative for fever. HENT: Negative for sore throat. Eyes: Negative for visual changes. Cardiovascular: Negative for chest pain. Respiratory: Negative for shortness of breath. Gastrointestinal: + Abdominal pain, + nausea Genitourinary: Negative for dysuria. Musculoskeletal: Negative for back pain. Skin: Negative for rash. Neurological: Negative for headaches, weakness or numbness. 10 point ROS negative except as marked above and in HPI. Physical Exam - Vital signs Vitals: Temp 97.8 F 06/01/20 17:54 - Notes Notes: PHYSICAL EXAMINATION: Physical Exam: General: Pale appearing 49-year-old woman lying quietly on her left side in the bed. HEENT: NC/AT, pupils equal round and reactive to light, MM moist,nares clear, oropharynx clear, airway patent Neck: supple, no adenopathy, no masses. Good range of motion Lungs: clear, no wheezing, no rales no rhonchi CVS: Regular rate and rhythm no murmur gallop or rub Abdomen: Soft, active, mild tenderness in the epigastric and right upper quadrant regions, no masses, no hepatosplenomegaly Ext: No edema, clubbing or cyanosis. Neuro: Alert and responsive, moving all 4 extremities on command, cranial nerves intact, no focal findings Skin: Intact no open lesions, no rash PSYCH: Normal mood, normal affect. Course - Re-evaluation Re-evalutation: 06/01/20 20:15 I reviewed the patient's lab work reveals a drop in her hemoglobin, on 05/30/2020 the H&H was 11.9/35, the lab tonight reveals 8.1/24.1. CT scan of the abdomen and pelvis reveals increased hemorrhage in the subcapsular region and also intra-peritoneal. 06/01/20 20:20 I have contacted the transfer center at [facility] 06/01/20 20:28 I have discussed the patient with the surgeon chief hydroelectric station operator Dr. Huerta, he will assess the patient for further evaluation ER to ER transport. 06/01/20 21:22 Transfer Evaluation Prior to Transport. Patient is being transferred to [facility] , evaluation at the time of transfer, patient is hemodynamically stable. Transport team successfully moved the patient onto the stretcher without incident. Patient stable for transport. - Vital Signs Vital signs: Temp Pulse Resp BP Pulse Ox 98.8 F 26 H 130/84 H 98 06/01/20 21:00 06/01/20 21:01 06/01/20 21:00 06/01/20 21:01 - Laboratory Result Diagrams: 06/01/20 18:00 06/01/20 18:00 Laboratory results interpreted by me: 06/01/20 06/01/20 06/01/20 18:00 18:00 19:50 WBC 14.9 H RBC 2.56 L Hgb 8.1 L D Hct 24.1 L Plt Count 135 L Lymph % (Auto) 10.8 L Absolute Neuts (auto) 11.9 H Seg Neutrophils % 79.8 H Sodium 131.1 L Potassium 3.5 L Anion Gap 4 L BUN 22 H Est GFR (MDRD) Non-Af 55 L Glucose 164 H Calcium 8.2 L AST 166 H ALT 244 H Total Protein 5.4 L Albumin 2.9 L Urine Protein 100 H Urine Ketones 20 H Urine Blood MODERATE H Urine Urobilinogen 2.0 H 06/01/20 20:22 I have reviewed laboratory data and used this information for the treatment decisions regarding the patient. - Diagnostic Test Radiology reviewed: Image reviewed, Reports reviewed Radiology results interpreted by me: 06/01/20 20:21 CT abdomen and pelvis with IV contrast: Right lateral hepatic subcapsular hematoma enlarged since 05/30/2020. Moderate hemoperitoneum with hemorrhage throughout the peritoneal cavity, no CT evidence of acute extravasation at this time. Exophytic lesion in the left hepatic lobe has not changed. Discharge - Discharge Clinical Impression: Subcapsular hematoma of liver, Hemoperitoneum Condition: Fair Disposition: [facility] Referrals: CORTEZ HUBBARD MD [Primary Care Provider] - Follow up as needed
[2020-06-01 20:31] LABS: APPEARANCE,URINE SLIGHTLY-CLOUDY; BILIRUBIN,URINE NEGATIVE (NEGATIVE); COLOR,URINE YELLOW; GLUCOSE, URINE NEGATIVE (NEGATIVE); KETONES,URINE 20 mg/dL (NEGATIVE); LEUKOCYTE ESTERASE,URINE NEGATIVE (NEGATIVE); NITRITE,URINE NEGATIVE (NEGATIVE); PROTEIN,URINE 100 mg/dL (NEGATIVE); URINE SPECIFIC GRAVITY 1.047
[2020-06-01 21:08] VITALS: BP 130/84
== END 2020-06-01 21:27 | disposition short-term general hospital (02) ==
LOC: ER 17:54
DX: K76.89 Other specified diseases of liver (principal); K66.1 Hemoperitoneum; R10.11 Right upper quadrant pain; R10.816 Epigastric abdominal tenderness; R10.811 Right upper quadrant abdominal tenderness; R11.0 Nausea; I10 Essential (primary) hypertension; Z72.0 Tobacco use; Z88.2 Allergy status to sulfonamides
CPT/HCPCS: 99285; 96361; 96374; 36415; 83690; 85025; 80053; 81001; 74177; J2405; J7030